=== PATIENT | female | born 1980 | race Two or more races ===

== ENCOUNTER 2018-11-13 14:10 | Emergency (ER) | payer OTHER ==
[~2018-11-13] VITALS: Ht 165.1 cm; Wt 83.9 kg
[~2018-11-13 14:10] MED LIST: PREVACID30 MG PO; ZOFRAN4 MG PO
[2018-11-13] MEDS ORDERED: SYNTHROID88 MCG (15:32)
== END 2018-11-13 21:56 | disposition home or self-care (01) ==
LOC: ER 14:10
DX: J11.1 Influenza due to unidentified influenza virus with other respiratory manifestations (principal); R50.9 Fever, unspecified

== ENCOUNTER 2018-12-08 09:30 | Outpatient (CLI) | payer OTHER ==
[~2018-12-08 09:30] MED LIST changes: +SYNTHROID88 MCG
== END 2018-12-08 09:39 | disposition home or self-care (01) ==
LOC: MRI 09:30
DX: M25.561 Pain in right knee (principal); M25.562 Pain in left knee
CPT/HCPCS: 73721

== ENCOUNTER → 2019-02-05 | Outpatient (CLI) | payer OTHER | END | disposition home or self-care (01) | LOC: MAMO-SONO 01-18 08:15 | DX: Z12.31 Encounter for screening mammogram for malignant neoplasm of breast (principal); Z87.898 Personal history of other specified conditions; Z78.0 Asymptomatic menopausal state; Z78.9 Other specified health status; N64.4 Mastodynia; N63.10 Unspecified lump in the right breast, unspecified quadrant; N63.20 Unspecified lump in the left breast, unspecified quadrant; E03.8 Other specified hypothyroidism ==

== ENCOUNTER 2019-02-22 10:03 | Outpatient (CLI) | payer OTHER | END 2019-02-22 10:14 | disposition home or self-care (01) | LOC: MAMO-SONO 10:03 | DX: N60.11 Diffuse cystic mastopathy of right breast (principal); N63.10 Unspecified lump in the right breast, unspecified quadrant; N64.4 Mastodynia; N95.1 Menopausal and female climacteric states; Z12.31 Encounter for screening mammogram for malignant neoplasm of breast ==

== ENCOUNTER 2020-05-13 12:29 | Outpatient (CLI) | payer OTHER | END 2020-05-13 12:42 | disposition home or self-care (01) | LOC: MAMO-SONO 12:29 | PROVIDERS: ATTEND Obstetrics & Gynecology | DX: R92.0 Mammographic microcalcification found on diagnostic imaging of breast (principal); Z12.31 Encounter for screening mammogram for malignant neoplasm of breast; N60.11 Diffuse cystic mastopathy of right breast; N60.12 Diffuse cystic mastopathy of left breast ==

== ENCOUNTER 2020-07-03 07:49 | Outpatient (CLI) | payer OTHER | END 2020-07-03 08:05 | disposition home or self-care (01) | LOC: TOM 07:49 | PROVIDERS: ATTEND Internal Medicine Cardiovascular Disease | DX: R41.2 Retrograde amnesia (principal); R51.0 Headache with orthostatic component, not elsewhere classified ==

== ENCOUNTER 2021-05-14 08:26 | Outpatient (CLI) | payer OTHER | END 2021-05-14 08:47 | disposition home or self-care (01) | LOC: MAMO-SONO 08:26 | PROVIDERS: ATTEND Obstetrics & Gynecology | DX: R92.1 Mammographic calcification found on diagnostic imaging of breast (principal); N64.4 Mastodynia; Z12.31 Encounter for screening mammogram for malignant neoplasm of breast ==

== ENCOUNTER 2021-08-27 12:42 | Outpatient (CLI) | payer OTHER | END 2021-08-27 12:52 | disposition home or self-care (01) | LOC: RAD 12:42 | PROVIDERS: ATTEND Internal Medicine Cardiovascular Disease | DX: M12.9 Arthropathy, unspecified (principal) ==

== ENCOUNTER 2022-06-01 10:18 | Outpatient (CLI) | payer OTHER | END 2022-06-01 10:35 | disposition home or self-care (01) | LOC: MAMO-SONO 10:18 | PROVIDERS: ATTEND Obstetrics & Gynecology | DX: Z12.31 Encounter for screening mammogram for malignant neoplasm of breast (principal); N64.4 Mastodynia; N63.0 Unspecified lump in unspecified breast; R92.2 Inconclusive mammogram; R10.2 Pelvic and perineal pain ==

== ENCOUNTER 2023-11-28 10:42 | Outpatient (CLI) | payer OTHER | END 2023-11-28 10:53 | disposition home or self-care (01) | LOC: RAD 10:42 | PROVIDERS: ATTEND Internal Medicine Cardiovascular Disease | DX: M10.9 Gout, unspecified (principal); M12.9 Arthropathy, unspecified ==

== ENCOUNTER 2024-02-13 09:35 | Outpatient (CLI) | payer OTHER | END 2024-02-13 09:50 | disposition home or self-care (01) | LOC: MAMO-SONO 09:35 | PROVIDERS: ATTEND Internal Medicine Cardiovascular Disease | DX: N60.11 Diffuse cystic mastopathy of right breast (principal); N60.12 Diffuse cystic mastopathy of left breast; Z12.31 Encounter for screening mammogram for malignant neoplasm of breast ==

== ENCOUNTER 2024-03-02 10:43 | Outpatient (CLI) | payer OTHER | END 2024-03-02 10:46 | disposition home or self-care (01) | LOC: SONOGRAMA 10:43 | PROVIDERS: ATTEND Internal Medicine Cardiovascular Disease | DX: R10.9 Unspecified abdominal pain (principal) ==

== ENCOUNTER 2024-03-26 09:58 | Outpatient (CLI) | payer OTHER | END 2024-03-26 10:10 | disposition home or self-care (01) | LOC: SONOGRAMA 09:58 | PROVIDERS: ATTEND General Practice | DX: E06.3 Autoimmune thyroiditis (principal); E04.2 Nontoxic multinodular goiter; E66.09 Other obesity due to excess calories; Z68.31 Body mass index [BMI] 31.0-31.9, adult; E28.2 Polycystic ovarian syndrome; E55.9 Vitamin D deficiency, unspecified; E56.8 Deficiency of other vitamins ==

== ENCOUNTER 2025-01-10 08:13 | Outpatient (CLI) | payer OTHER | END 2025-01-10 08:14 | disposition home or self-care (01) | LOC: NUCLEAR 08:13 | PROVIDERS: ATTEND Internal Medicine Endocrinology, Diabetes & Metabolism | DX: I50.20 Unspecified systolic (congestive) heart failure (principal) ==

== ENCOUNTER → 2025-04-01 | Outpatient (CLI) | payer OTHER | END | disposition home or self-care (01) | LOC: SONOGRAMA 11:15 | PROVIDERS: ATTEND General Practice | DX: E06.3 Autoimmune thyroiditis (principal); E04.2 Nontoxic multinodular goiter; E66.09 Other obesity due to excess calories; E28.2 Polycystic ovarian syndrome; E55.9 Vitamin D deficiency, unspecified; E56.8 Deficiency of other vitamins; Z68.31 Body mass index [BMI] 31.0-31.9, adult ==